=== PATIENT | male | born 1990 | race Caucasian/White ===

== ENCOUNTER 2018-04-17 11:06 | Emergency (ER) | END 2018-04-17 12:59 | disposition home or self-care (01) ==

== ENCOUNTER 2018-04-28 23:23 | Emergency (ER) | payer BC ==
[~2018-04-28] VITALS: Ht 162.6 cm; Wt 61.6 kg
[~2018-04-28 23:23] MED LIST: ACET500C5 PO
[2018-04-28 23:26] VITALS: Ht 162.6 cm; Wt 61.6 kg
--- NOTE | 2018-04-29 00:08 | ERD ---
ER Documentation Chief Complaint Chief Complaint frontal PAYNE on/off x a week,no KO,Tylenol not helping HPI This is a 27-year-old male who presents here in emergency department with complaints of headache, light sensitivity that is on and off for about a week. Stated that he was here last April 17, [address] of the head, was discharged with a prescription of Tylenol. Stated that the Tylenol is not working. Denies that this is the worst headache of his life, head injury, loss of consciousness, dizziness, neck pain, neck stiffness, throat pain, difficulty s wallowing, difficulty breathing lying flat, shoulder pain, chest pain, back pain, abdominal pain, nausea, vomiting, constipation, diarrhea, urinary symptoms, loss of bowel and bladder control, trauma, injury, falls, difficulty walking due to pain, numbness or tingling sensation, calf pain, recent travel, recent major surgery in the last 3 weeks, calf pain, recent long travel, recent exposure to any illness, recent antibiotic use in the last 3 months, fever, chills, seizures. Past medical history: Surgical history: Left shoulder surgery x3. Social: Denies smoking, use of alcoholic beverages, use of illegal drugs. ROS All systems reviewed and are negative except as per history of present illness. Medications Home Meds Active Scripts Acetamin/Butalbital/Caffeine* (Fioricet*) [id number] Tab, 1 TAB PO Q6H PRN for PAIN, #30 TAB Prov:PASILABAN,KLAR F 04/29/18 Metoclopramide* (Reglan*) 10 Mg Tablet, 10 MG PO Q6 PRN for NAUSEA AND/OR VOMITING, #30 TAB Prov:PASILABAN,RYANNAR F 04/29/18 Acetaminophen* (Tylophen*) 500 Mg Capsule, 1 CAP PO Q6H PRN for PAIN AND OR ELEVATED TEMP, #20 CAP Prov:ESTEFANI HAGAN MD 04/17/18 Allergies Allergies: Coded Allergies: No Known Allergy (Unverified , 04/29/18) PMhx/Soc Hx Alcohol Use: No Hx Substance Use: No Hx Tobacco Use: No Physical Exam Vitals Vital Signs Date Temp Pulse Resp B/P (MAP) Pulse Ox O2 O2 Flow FiO2 Time Delivery Rate 04/29/18 97.8 81 16 127/54 99 Room Air 01:16 (78) 04/28/18 96.3 96 18 124/75 97 23:26 (91) Physical Exam Const: No acute distress Head: Atraumatic Eyes: Normal Conjunctiva. There is no visual field loss. There is a light sensitivity. ENT: Normal External Ears, Nose and Mouth. Bilateral ears: TMs not erythematous. No bleeding. No discharge with no hearing loss. Nose: Midline. No septal hematoma. There is mild frontal maxillary sinus tenderness to palpation. Throat: Uvula is midline in its place. Tonsils are +1 bilaterally without redness without exudates. Tolerating secretions. Patent airway. Speaks full and clear sentences. Neck: Full range of motion. No meningismus. No nuchal rigidity. No signs of meningeal irritation. Resp: Clear to auscultation bilaterally Cardio: Regular rate and rhythm, no murmurs Abd: Soft, non tender, non distended. Normal bowel sounds Skin: No petechiae or rashes Back: No midline or flank tenderness Ext: No cyanosis, or edema Neur: Awake and alert. Romberg test is negative. No neurological deficits. Psych: Normal Mood and Affect Results 24 hrs Current Medications Medications Dose Sig/Pamela Start Time Status Last (Trade) Ordered Route PRN Stop Time Admin Dose Reason Admin Sodium 1,000 ml @ Q1H ONCE 04/29/18 DC 04/29/18 Chloride 1,000 mls/hr IV 00:30 00:18 04/29/18 01:29 10 mg ONCE ONCE 04/29/18 DC 04/29/18 Metoclopramid IV 00:30 00:22 e HCl 04/29/18 (Reglan) 00:31 50 mg ONCE ONCE 04/29/18 DC 04/29/18 Diphenhydrami IV 00:30 00:22 ne HCl 04/29/18 (Benadryl) 00:31 Procedures/MDM Diagnostic tests: Clinical exam. Treatment: Saline lock. Normal saline IV bolus. Reglan IV. Benadryl IV. Re-evaluation: Denies headache. Romberg test is negative. No neurological deficit. Ambulatory with steady gait. Differential diagnosis I have low suspicion for subarachnoid hemorrhage, stroke. Final diagnosis: Migraine. Prescription: Fioricet. Reglan. Follow-up with PCP in the next 24-48 hours. PCP to refer patient to neurologist in the next 3-4 days. Come back here in the emergency department for any new symptoms or any worsening symptoms. All questions and concerns were answered. Patient and family members verbalized understanding and agreed with plan of care. Hemodynamically stable on discharge. Departure Diagnosis: Primary Impression: Headache Condition: Stable Additional Instructions: Follow-up with PCP in the next 24-48 hours. PCP to refer patient to neurologist in the next 3-4 days. Come back here in the emergency department for any new symptoms or any worsening symptoms. TERRY ESCOTO Apr 29, 2018 00:08
[2018-04-29] MEDS ORDERED: SOD CHLORIDE 0.9% 1,000 ML IV ONE (00:30)
[2018-04-29] MEDS ORDERED: METOCLOPRAMIDE 10 MG INJ IV ONE (00:30)
[2018-04-29] MEDS ORDERED: DIPHENHYDRAMINE 50 MG INJ IV ONE (00:30)
[2018-04-29] MEDS ORDERED: METO10TA92 PO (01:15)
[2018-04-29 01:16] VITALS: BP 127/54; PULSE 81; RESP 16
[2018-04-29] MEDS ORDERED: FIORICET PO (01:16)
== END 2018-04-29 01:44 | disposition home or self-care (01) ==
LOC: FTE 23:23
DX: R51 Headache (principal)
CPT/HCPCS: 96374; 96375; 99284; J1200; J2765; J7030

== ENCOUNTER 2019-01-23 23:06 | Emergency (ER) | payer BC ==
[~2019-01-23] VITALS: Ht 158.8 cm; Wt 66.4 kg
[~2019-01-23 23:06] MED LIST changes: +ACET325T33 PO; +BEN25 PO; +BUTA1CAP38 PO; +FIORICET PO; +IBUP-1542 PO; +METO10TA92 PO
[2019-01-23 23:37] VITALS: Ht 158.8 cm; Wt 66.4 kg
[2019-01-24] MEDS: SUMATRIPTAN 6 MG/0.5 ML INJ SC ONE ×2 (02:24→02:25)
[2019-01-24] MEDS ORDERED: METOCLOPRAMIDE 10 MG INJ IV ONE (02:30)
[2019-01-24] MEDS ORDERED: DIPHENHYDRAMINE 50 MG INJ IV ONE (02:30)
[2019-01-24] MEDS ORDERED: SUMATRIPTAN 6 MG/0.5 ML INJ SC ONE (02:30)
[2019-01-24] MEDS ORDERED: SOD CHLORIDE 0.9% 1,000 ML IV ONE (02:30)
[2019-01-24 03:01] VITALS: BP 109/59; PULSE 68; RESP 18
== END 2019-01-24 03:01 | disposition home or self-care (01) ==
LOC: FTE 23:06
DX: G43.909 Migraine, unspecified, not intractable, without status migrainosus (principal); J32.9 Chronic sinusitis, unspecified
CPT/HCPCS: 96372; 96374; 96375; 99284; J1200; J2765; J3030; J7030

== ENCOUNTER 2019-01-30 20:21 | Emergency (ER) | payer BC ==
[~2019-01-30] VITALS: Ht 160 cm; Wt 63.6 kg
[2019-01-30 20:36] VITALS: Ht 160 cm; Wt 63.6 kg
[2019-01-30 21:50] VITALS: BP 143/82; PULSE 87; RESP 19
== END 2019-01-30 21:55 | disposition home or self-care (01) ==
LOC: FTE 20:21
DX: G43.909 Migraine, unspecified, not intractable, without status migrainosus (principal)
CPT/HCPCS: 99282